=== PATIENT | female | born 1980 | race Caucasian/White ===

== ENCOUNTER 2022-09-07 10:19 | Emergency (ER) | payer OTHER, SELFPAY ==
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
[2022-09-07 10:47] VITALS: BP 156/77; PULSE 75; RESP 20; TEMP 36.6; O2SAT 100; BMI 24.0
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
== END 2022-09-07 17:37 | disposition left against medical advice (07) ==
PROVIDERS: Emergency Provider Emergency Medicine Emergency Medical Services
DX: R51.9 Headache, unspecified (principal); M54.2 Cervicalgia; M25.512 Pain in left shoulder; M25.562 Pain in left knee
CPT/HCPCS: 72040; 73030; 73560; 99282; 99283

== ENCOUNTER 2022-09-24 14:10 | Emergency (ER) | payer OTHER, SELFPAY ==
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
--- NOTE | ~2022-09-24 | XR_ITS ---
EXAMINATION: XR SACRUM AND COCCYX CLINICAL INFORMATION: Pain COMPARISON: CT abdomen and pelvis 12/17/2012 TECHNIQUE: 2 views of the sacrum and 2 views of the coccyx were obtained. FINDINGS: No acute fracture of the sacrum or coccyx identified. The SI joints are congruent and intact. Facet arthrosis at L4-L5 and L5-S1. Grade 1 anterolisthesis at L5-S1. Relatively advanced degenerative disc disease at L5-S1 with moderate to severe disc height loss. XR/XR sacrum coccyx min 2V IMPRESSION: 1. No acute fracture identified. 2. Grade 1 anterolisthesis and relatively advanced degenerative disc disease at L5-S1.
[2022-09-24 14:53] VITALS: BP 135/89; PULSE 83; RESP 18; TEMP 36.7; O2SAT 99; BMI 29.0
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
--- NOTE | 2022-09-24 16:47 | PC.NURSE ---
no answer at [id number]
== END 2022-09-24 18:17 | disposition left against medical advice (07) ==
LOC: HO.ED 17:53
PROVIDERS: Emergency Provider Emergency Medicine Emergency Medical Services
DX: S09.90XA Unspecified injury of head, initial encounter (principal); R51.9 Headache, unspecified; M54.50 Low back pain, unspecified; M54.2 Cervicalgia; W01.0XXA Fall on same level from slipping, tripping and stumbling without subsequent striking against object, initial encounter; Y93.9 Activity, unspecified; Y92.9 Unspecified place or not applicable; Y99.9 Unspecified external cause status; Z79.899 Other long term (current) drug therapy
CPT/HCPCS: 70450; 72125; 72220; 99282; 99283